=== PATIENT | male | born 1985 | race Hispanic/Latino ===

== ENCOUNTER 2019-05-30 09:42 | Emergency (ER) | payer SELFPAY ==
[~2019-05-30] VITALS: Ht 175.3 cm; Wt 74.8 kg
[2019-05-30] MEDS ORDERED: DILANTIN30 MG PO (09:53)
[2019-05-30] MEDS ORDERED: NORCO 5-325 TA1 EACH PO (10:48)
== END 2019-05-30 11:37 | disposition home or self-care (01) ==
LOC: ED 09:42
DX: S42.292A Other displaced fracture of upper end of left humerus, initial encounter for closed fracture (principal); X50.0XXA Overexertion from strenuous movement or load, initial encounter
CPT/HCPCS: 73030; 99283